=== PATIENT | female | born 1960 | race Caucasian/White ===

== ENCOUNTER 2016-10-21 09:49 | Emergency (ER) ==
[2016-10-21 10:01] VITALS: BP 126/90; TEMP 96.2; BMI 35.4
[2016-10-21] MEDS ORDERED: ATIVAN IVP STA (10:02)
[2016-10-21] MEDS ORDERED: SODIUM CHLORIDE 1,000 ML IV STA (10:05)
[2016-10-21 10:46] LABS: BASOPHILS % (AUTO) 0.6 % (0.0-3.0); EOSINOPHILS # (AUTO) 0.3 K/ul (0.0-0.7); EOSINOPHILS % (AUTO) 4.1 % (0.0-7.0); HEMATOCRIT 40.6 % (37.0-47.0); HEMOGLOBIN 13.4 g/dl (12.0-16.0); IMMATURE GRANULOCYTE % (AUTO) 0.3 % (0.0-5.0); LYMPHOCYTES # (AUTO) 1.4 K/uL (0.60-3.4); LYMPHOCYTES % (AUTO) 21.7 (10.0-50.0); MEAN CORPUSCULAR HEMOGLOBIN 27.9 pg (27.0-31.0); MEAN CORPUSCULAR VOLUME 84.4 fl (81.0-99.0); MONOCYTES # (AUTO) 0.7 K/uL (0.4-2.0); MONOCYTES % (AUTO) 9.8 (0-10); NEUTROPHILS # (AUTO) 4.2 K/ul (2.0-6.9); NEUTROPHILS % (AUTO) 63.5; PLATELET COUNT 264 10^3/uL (140-440); RED BLOOD COUNT 4.81 10^6/ul (4.20-5.40)
--- NOTE | 2016-10-21 10:54 | CT ---
Exam: CT scan of the brain without intravenous contrast administration. Reason for study: Trauma. Comparison: 11/12/2013. FINDINGS: No acute intracranial hemorrhage, mass effect, ventricular dilatation, or territorial infarction. T he quadrigeminal and ambient cisterns are patent. There is no extraaxial fluid collection. Soft ti ssue defect is seen in the left frontal calvarium with subcutaneous gas. The underlying calvarium a ppears intact. No displaced skull fracture. Impression: 1. No acute intracranial findings. 2. Soft tissue defect in the left frontal calvarium extending towards the vertex. Air in the subcu taneous soft tissues can be seen with recent trauma or surgical intervention but can also be seen wi th infection. Recommend further evaluation. Imaging interpretation faxed to [facility] at 1050 hours on the day of exam.
[2016-10-21 11:18] LABS: ACETAMINOPHEN < 3 ug/ml (10-30); ALANINE AMINOTRANSFERASE 22 U/L (12-78); ALBUMIN 3.5 g/dL (3.4-5.0); ALBUMIN/GLOBULIN RATIO 1.03; ALKALINE PHOSPHATASE 72 U/L (42-98); ANION GAP 12.2; ASPARTATE AMINO TRANSFERASE 20 U/L (15-37); BILIRUBIN,TOTAL 0.39 mg/dL (0.00-1.20); BLOOD UREA NITROGEN 16 mg/dL (7-18); BUN/CREATININE RATIO 16.84; CARBON DIOXIDE 22 mmol/L (21-32); CHLORIDE 106 mmol/L (98-107); CREATININE 0.95 mg/dL (0.60-1.30); GLUCOSE 99 mg/dL (70-110); POTASSIUM 3.2 mmol/L (3.5-5.10); SALICYLATE < 5.0 mg/dL (2.8-20.0); SODIUM 137 mmol/L (136-145); TOTAL PROTEIN 6.9 g/dL (6.4-8.2)
--- NOTE | 2016-10-21 12:20 | ED.PDOC ---
General ED Provider: Dr. DORA FAIR Chief Complaint: Laceration Stated Complaint: LACERATION SCALP Time Seen by Physician: 10:00 (FALL HEAD LACERATION) Mode of Arrival: Walk-In Information Source: Patient, Family Exam Limitations: No limitations Primary Care Provider: MARIYA DAWN Nursing and Triage Documentation Reviewed and Agree: Yes Trauma/Injury Complaint Exam - Head Injury Complaint/Exam Location of Pain: Reports: Scalp Mechanism of Injury: Reports: Trauma Onset/Duration: THIS MORNING Symptoms Are: Still present Initial Severity: Moderate Current Severity: Moderate Character: Reports: Dull Aggravating: Reports: None Alleviating: Reports: None (STATED SHE DID SOME METHAMPHETAMINE TODAY) Associated Signs and Symptoms: Denies: Confusion, Memory loss, Seizure, Epistaxis, Dental malocclusion, Neck pain, Nausea, Vomiting Loss of Consciousness: None SDH Risk Factors: Present: None Cervical Spine Injury Risk Factors: Present: None Related Surgical History: Reports: None Immobilization Removed Post Exam: No Glascow Coma Scale (see protocol): 15 Focal Weakness: Present: None Focal Sensory Loss: Present: None Gait: Normal Gag Reflex Present: Yes Finger to Nose: Normal Rhomberg Test Positive: No Babinski Sign: Negative Right, Negative Left Nexus Low Risk Criteria: No post-midline CS tender, No evidence of intoxicat., No Altered LOC, No focal neuro deficit, No distracting injuries Differential Diagnoses: Trauma, Other (SCALP LACERATION) Review of Systems - Review Of Systems Constitutional: Reports: No symptoms Eyes: Reports: No symptoms Ears, Nose, Mouth, Throat: Reports: No symptoms Respiratory: Reports: No symptoms Cardiac: Reports: No symptoms GI: Reports: No symptoms : Reports: No symptoms Musculoskeletal: Reports: No symptoms Skin: Reports: Other (LACERATION) Neurological: Reports: No symptoms Endocrine: Reports: No symptoms Hematologic/Lymphatic: Reports: No symptoms All Other Systems: Reviewed and Negative Past Medical History - Past Medical History Endocrine: Reports: Hypothyroid Cardiovascular: Reports: CAD, Hypertension Respiratory: Reports: None Hematological: Reports: Anemia Gastrointestinal: Reports: None Genitourinary: Reports: None Neuro/Psych: Reports: Depression Musculoskeletal: Reports: None Cancer: Reports: None Last Menstrual Period: na - Surgical History General Surgical History: Reports: Tubal ligation, CABG (x5), Other ( HEMORRHOID ) - Family History Family History: Reports: Unknown - Social History Smoking Status: Former smoker Hx Substance Use: Yes (injected meth this am) Alcohol Screening: None Physical Exam - Physical Exam Appearance: Well-appearing (A 20 CM LACERATION EXTENDING TO CALVARIUM ), No pain distress, Well-nourished Eyes: COLLEEN, EOMI, Conjunctiva clear ENT: Ears normal, Nose normal, Oropharynx normal Respiratory: Airway patent, Breath sounds clear, Breath sounds equal, Respirations nonlabored Cardiovascular: RRR, Pulses normal, No rub, No murmur GI/: Soft, Nontender, No masses, Bowel sounds normal, No Organomegaly Musculoskeletal: Normal strength, ROM intact, No edema, No calf tenderness Skin: Warm, Dry, Normal color Neurological: Sensation intact, Motor intact, Reflexes intact, Cranial nerves intact, Alert, Oriented Psychiatric: Affect appropriate, Mood appropriate Physician Notification - Case Discussed Physician Notified: ZHANG Time of Notification: 12:23 ( TRANSFER ) Critical Care Note - Critical Care Note Total Time (mins): 0 Course - Course Hematology/Chemistry: 10/21/16 10:08 10/21/16 10:35 Orders, Labs, Meds: Lab Review 10/21/16 10/21/16 10:08 10:35 WBC 6.60 RBC 4.81 Hgb 13.4 Hct 40.6 MCV 84.4 MCH 27.9 MCHC 33.0 RDW Coeff of Emy 13.1 Plt Count 264 Immature Gran % (Auto) 0.3 Neut % (Auto) 63.5 Lymph % (Auto) 21.7 [place] % (Auto) 9.8 Eos % (Auto) 4.1 Baso % (Auto) 0.6 Immature Gran # (Auto) 0.0 Neut # 4.2 Lymph # 1.4 [place] # 0.7 Eos # 0.3 Baso # 0.0 Sodium 137 Potassium 3.2 L Chloride 106 Carbon Dioxide 22 Anion Gap 12.2 BUN 16 Creatinine 0.95 Estimated GFR (MDRD) 62.00 BUN/Creatinine Ratio 16.84 Glucose 99 Calcium 9.0 Total Bilirubin 0.39 AST 20 ALT 22 Alkaline Phosphatase 72 Total Protein 6.9 Albumin 3.5 Globulin 3.4 Albumin/Globulin Ratio 1.03 Salicylate Level mg/dL < 5.0 Acetaminophen < 3 L Plasma/Serum Alcohol < 10.0 Orders Category Date Time Status EKG-(ED ONLY) Stat CARDIO 10/21/16 10:08 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[employer] COMM[employer]ICATIONS APPLIED ONCE EMERGENCY 10/21/16 10:08 Active ACETAMINOPHEN Stat LAB 10/21/16 10:35 Completed BLOOD ALCOHOL Stat LAB 10/21/16 10:35 Completed CBC W/ AUTO DIFF Stat LAB 10/21/16 10:08 Completed COMPREHENSIVE METABOLIC PANEL Stat LAB 10/21/16 10:35 Completed DRUG SCREEN, URINE, RAPID Stat LAB 10/21/16 10:08 Ordered SALICYLATE Stat LAB 10/21/16 10:35 Completed URINALYSIS C & S IF INDICATED Stat LAB 10/21/16 10:08 Uncollected Lorazepam Inj [Ativan] MEDS 10/21/16 10:02 Discontinued 1 mg IVP ONCE STA Sodium Chloride 0.9% [Sodium Chloride] 1,000 ml MEDS 10/21/16 10:05 Active IV 100 mls/hr CT HEAD W/O CONTRAST Stat RADS 10/21/16 10:03 Completed Medications Generic Name Dose Route Start Last Admin Trade Name Freq PRN Reason Stop Dose Admin Sodium Chloride 1,000 mls @ 100 mls/hr 10/21/16 10:05 10/21/16 10:10 Sodium Chloride IV 10/21/16 20:04 100 mls/hr .Q10H STA Administration Discontinued Medications Generic Name Dose Route Start Last Admin Trade Name Freq PRN Reason Stop Dose Admin Lorazepam 1 mg 10/21/16 10:02 10/21/16 10:10 Ativan IVP 10/21/16 10:03 1 mg ONCE STA Administration Vital Signs: Temp Pulse Resp BP Pulse Ox 10/21/16 09:51 96.2 F L 77 24 126/90 98 Departure - Departure Time of Disposition: 12:22 Disposition: TSF SHORT-TRM HOSP Discharge Problem: Laceration of skin of scalp Qualifiers: Encounter type: initial encounter Qualifier Code: (S01.01XA) Laceration without foreign body of scalp, initial encounter Instructions: Head Injury (ED) Condition: Good Pt referred to PMD for follow-up: Yes (VICENTE ANGEL DRUZE) Allergies/Adverse Reactions: Allergies adhesive Adverse Reaction (Verified 10/21/16 10:04) latex Adverse Reaction (Verified 10/21/16 10:04) Penicillins Adverse Reaction (Verified 10/21/16 10:04) Home Medications: Ambulatory Orders Cyanocobalamin/Folic Acid [Vitamin Q57-Fuwpt Acid Tablet] 500 mcg PO DAILY 04/05 Levothyroxine Sodium [Synthroid] 125 mcg PO DAILY 04/05/13 Metoprolol Tartrate [Lopressor] 25 mg PO BID 04/05/13 Amlodipine Besylate [Norvasc] 5 mg PO DAILY 11/12/13 Aspirin [Aspirin EC] 81 mg PO DAILYWM 10/17/14 Potassium Chloride [K-Tab ER] 10 meq PO BEDTIME 02/05/15
== END 2016-10-21 13:04 | disposition short-term general hospital (02) ==
LOC: ED 09:49
DX: S01.01XA Laceration without foreign body of scalp, initial encounter (principal); W19.XXXA Unspecified fall, initial encounter
CPT/HCPCS: 36415; 80053; 80307; 85025; 93005; 93010; 96361; 96374; 99285

== ENCOUNTER 2016-10-21 13:11 | Outpatient (CLI) ==
[2016-10-21 10:01] VITALS: BMI 35.4
== END 2016-10-21 13:12 ==
LOC: AMBL 13:11
PROVIDERS: ATTEND Internal Medicine
DX: S01.01XA Laceration without foreign body of scalp, initial encounter (principal); W19.XXXA Unspecified fall, initial encounter

== ENCOUNTER 2017-11-28 01:13 | Outpatient (CLI) ==
[2017-11-28 01:41] VITALS: BMI 34.0
== END 2017-11-28 01:18 | disposition short-term general hospital (02) ==
LOC: AMBL 01:13
PROVIDERS: ATTEND Emergency Medicine
DX: S81.812A Laceration without foreign body, left lower leg, initial encounter (principal); S89.92XA Unspecified injury of left lower leg, initial encounter; M25.562 Pain in left knee; W10.9XXA Fall (on) (from) unspecified stairs and steps, initial encounter

== ENCOUNTER 2017-11-28 01:23 | Emergency (ER) ==
[2017-11-28 01:41] VITALS: BP 122/83; TEMP 98; BMI 34.0
[2017-11-28] MEDS ORDERED: BOOSTRIX IM ONE (01:56)
[2017-11-28] MEDS ORDERED: LIDOCAINE 1%-EPI 1:100,000 20 ML MDV INJ STA (01:56)
--- NOTE | 2017-11-28 02:20 | ED.PDOC ---
General ED Provider: Dr. ISAIAS GIRARD Chief Complaint: Fall Stated Complaint: Fell at home injured left knee, has cut to left knee started bleeding, she called 911. patient admits doing Methamphetamine Time Seen by Physician: 02:17 Mode of Arrival: Ambulance Information Source: Patient Primary Care Provider: MARIYA DAWN Nursing and Triage Documentation Reviewed and Agree: Yes Reviewed sepsis parameters & appropriate labs ordered?: No System Inflammatory Response Syndrome: Not Applicable Sepsis Protocol: For patient's 13 years and over: Temp is 96.8 and below OR 101 and greater Pulse >90 BPM Resp >20/minute Acutely Altered Mental Status Are patient's symptoms suggestive of a new infection, such as: -Pneumonia -Skin, Soft Tissue -Endocarditis -UTI -Bone, Joint Infection -Implantable Device -Acute Abdominal Infection -Wound Infection -Meningitis -Blood Stream Catheter Infection -Unknown Skin Complaint Exam - Laceration/Lower Ext. Complaint/Exam Location of Injury: Left, Knee Mechanism of Injury: Laceration Symptoms Are: Still present Initial Severity: Moderate Current Severity: Moderate Aggravating: Movement Alleviating: None Associated Signs and Symptoms: Denies: Fever, Chills, Erythema, Numbness, Tingling Differential Diagnoses: Laceration Review of Systems - Review Of Systems Constitutional: Reports: No symptoms Eyes: Reports: No symptoms Ears, Nose, Mouth, Throat: Reports: No symptoms Respiratory: Reports: No symptoms Cardiac: Reports: No symptoms GI: Reports: No symptoms : Reports: No symptoms Musculoskeletal: Reports: No symptoms Skin: Reports: No symptoms Neurological: Reports: No symptoms Endocrine: Reports: No symptoms Hematologic/Lymphatic: Reports: No symptoms All Other Systems: Reviewed and Negative Past Medical History - Past Medical History Previously Healthy: Yes Endocrine: Reports: Hypothyroid Cardiovascular: Reports: CAD, Hypertension Respiratory: Reports: None Hematological: Reports: Anemia Gastrointestinal: Reports: None Genitourinary: Reports: None Neuro/Psych: Reports: Depression Musculoskeletal: Reports: None Cancer: Reports: None Last Menstrual Period: PT HAS HAD A HYSTERECTOMY - Surgical History General Surgical History: Reports: Tubal ligation, CABG (x5), Other ( HEMORRHOID ) - Family History Family History: Reports: Unknown - Social History Smoking Status: Former smoker Hx Substance Use: Yes (injected meth) Alcohol Screening: None - Immunizations Tetanus Shot up to Date: (UNKNOWN) Physical Exam - Physical Exam Appearance: Well-appearing, No pain distress, Well-nourished Eyes: COLLEEN, EOMI, Conjunctiva clear ENT: Ears normal, Nose normal, Oropharynx normal Respiratory: Airway patent, Breath sounds clear, Breath sounds equal, Respirations nonlabored Cardiovascular: RRR, Pulses normal, No rub, No murmur GI/: Soft, Nontender, No masses, Bowel sounds normal, No Organomegaly Musculoskeletal: Normal strength, ROM intact, No edema, No calf tenderness Skin: Warm, Dry, Normal color Neurological: Sensation intact, Motor intact, Reflexes intact, Cranial nerves intact, Alert, Oriented Psychiatric: Affect appropriate, Mood appropriate Procedures - Laceration/Wound Repair No standard instances Wound Description: Linear Wound Length (cm): 5 cm Wound Width: 0.5 cm Wound Explored: Clean Wound Irrigated: Yes Wound Prep: Saline, Hibiclens Anesthesia: Lidocaine Wound Repaired With: Sutures Suture Size and Type: 4-0 FS2 Number of Sutures: 7 Layer Closure?: No Sterile Dressing Applied?: Yes Splint Applied?: No Critical Care Note - Critical Care Note Total Time (mins): 30 Course - Course Orders, Labs, Meds: Orders Category Date Time Status Diphth,Pertuss(Acell),Tet Vac [Boostrix] MEDS 11/28/17 01:56 Once 0.5 ml IM .ONCE ONE Lidocaine 1%/Epinephrine [Lidocaine 1%-Epi 1:100,000 20 MEDS 11/28/17 01:56 Stat ml Mdv] 1 ml INJ ONCE STA Medications Discontinued Medications Generic Name Dose Route Start Last Admin Trade Name Freq PRN Reason Stop Dose Admin Diphtheria/Pertussis/Tetanus Vacc 0.5 ml 11/28/17 01:56 11/28/17 02:04 Boostrix IM 11/28/17 01:57 0.5 ml .ONCE ONE Administration Lidocaine/Epinephrine 1 ml 11/28/17 01:56 11/28/17 02:06 Lidocaine 1%-Epi 1:100,000 20 Ml Mdv INJ 11/28/17 01:57 Not Given ONCE STA Vital Signs: Temp Pulse Resp BP Pulse Ox 11/28/17 01:29 98 F 69 24 122/83 100 Departure - Departure Time of Disposition: 02:23 Disposition: HOME SELF-CARE Discharge Problem: Laceration of knee, left Qualifiers: Encounter type: initial encounter Qualified Code(s): S81.012A - Laceration without foreign body, left knee, initial encounter Instructions: Diphtheria/Acellular Pertussis/Tetanus Vaccine (By injection), Laceration (DC) Condition: Stable Pt referred to PMD for follow-up: Yes IPMP verified?: No Additional Instructions: needs f/u with PMD after 7 days for suture removal. rest tylenol prn Allergies/Adverse Reactions: Allergies adhesive Adverse Reaction (Verified 11/28/17 01:41) latex Adverse Reaction (Verified 11/28/17 01:41) Penicillins Adverse Reaction (Verified 11/28/17 01:41) Home Medications: Ambulatory Orders Cyanocobalamin/Folic Acid [Vitamin O47-Xrbvi Acid Tablet] 500 mcg PO DAILY 04/05 Levothyroxine Sodium [Synthroid] 125 mcg PO DAILY 04/05/13 Metoprolol Tartrate [Lopressor] 25 mg PO BID 04/05/13 Amlodipine Besylate [Norvasc] 5 mg PO DAILY 11/12/13 Aspirin [Aspirin EC] 81 mg PO DAILYWM 10/17/14 Potassium Chloride [K-Tab ER] 10 meq PO DAILY 02/05/15 Pravastatin Sodium 10 mg PO DAILY 11/28/17 Disposition Discussed With: Patient, Family
[2017-11-28] MEDS ORDERED: LIDOCAINE HCL 1% SDV ONE (03:22)
== END 2017-11-28 02:41 | disposition home or self-care (01) ==
LOC: ED 01:23
DX: S81.012A Laceration without foreign body, left knee, initial encounter (principal); W19.XXXA Unspecified fall, initial encounter
CPT/HCPCS: 90471; 90715; 96372; 99283

== ENCOUNTER 2017-12-05 16:50 | Emergency (ER) ==
[2017-12-05 16:54] VITALS: BP 141/86; TEMP 97.6; BMI 34.2
--- NOTE | 2017-12-05 17:07 | ED.PDOC ---
General ED Provider: Dr. ZANDRA HENNING Chief Complaint: Wound Check Stated Complaint: Painful wound Lt Knee. Sustained laceration to infrapatellar region of her Lt knee last week which was sutured in the ER on the . Recommended following up here today for suture removal. Complains of pain, reddness and drainage at healing laceration site of Lt Knee. Time Seen by Physician: 16:50 Mode of Arrival: Walk-In Information Source: Patient Exam Limitations: No limitations Primary Care Provider: MARIYA AMYS Nursing and Triage Documentation Reviewed and Agree: Yes Reviewed sepsis parameters & appropriate labs ordered?: Yes System Inflammatory Response Syndrome: Not Applicable Sepsis Protocol: For patient's 13 years and over: Temp is 96.8 and below OR 101 and greater Pulse >90 BPM Resp >20/minute Acutely Altered Mental Status Are patient's symptoms suggestive of a new infection, such as: -Pneumonia -Skin, Soft Tissue -Endocarditis -UTI -Bone, Joint Infection -Implantable Device -Acute Abdominal Infection -Wound Infection -Meningitis -Blood Stream Catheter Infection -Unknown System Inflammatory Response Syndrome: Not Applicable Skin Complaint Exam - Laceration/Lower Ext. Complaint/Exam Location of Injury: Left, Knee Mechanism of Injury: Blunt trauma Onset/Duration: since the Symptoms Are: Still present Initial Severity: Moderate Current Severity: Moderate Aggravating: Movement Alleviating: None Associated Signs and Symptoms: Reports: Erythema. Denies: Fever, Chills Related History: Denies: Anticoagulant use, Occupational injury Differential Diagnoses: Laceration (healing with wound cellulitis) Review of Systems - Review Of Systems Constitutional: Reports: No symptoms Eyes: Reports: No symptoms Ears, Nose, Mouth, Throat: Reports: No symptoms Respiratory: Reports: No symptoms Cardiac: Reports: No symptoms GI: Reports: No symptoms : Reports: No symptoms Musculoskeletal: Reports: No symptoms Skin: Reports: No symptoms, Other (wound cellulitis lt knee laceration site) Neurological: Reports: No symptoms Endocrine: Reports: No symptoms Hematologic/Lymphatic: Reports: No symptoms All Other Systems: Reviewed and Negative Past Medical History - Past Medical History Previously Healthy: Yes Endocrine: Reports: Hypothyroid Cardiovascular: Reports: CAD, Hypertension Respiratory: Reports: None Hematological: Reports: Anemia Gastrointestinal: Reports: None Genitourinary: Reports: None Neuro/Psych: Reports: Depression Musculoskeletal: Reports: None Cancer: Reports: None Last Menstrual Period: NONE - Surgical History General Surgical History: Reports: Tubal ligation, CABG (x5), Other ( HEMORRHOID ) - Family History Family History: Reports: Unknown - Social History Smoking Status: Former smoker Hx Substance Use: Yes (injected meth) Alcohol Screening: None Physical Exam - Physical Exam Appearance: Well-appearing Ill-appearing: None Pain Distress: Mild Eyes: COLLEEN, EOMI, Conjunctiva clear ENT: Ears normal, Nose normal, Oropharynx normal Respiratory: Airway patent Cardiovascular: RRR, Pulses normal, No rub, No murmur GI/: Soft, Nontender, No masses, Bowel sounds normal, No Organomegaly Musculoskeletal: Normal strength, ROM intact, No edema, No calf tenderness Skin: Warm, Dry (Lt Knee-3.5 cm laceration -healing with sutures in place/ reddness and edematous/tender to touch/no drainage noted to inspection of the wound) Neurological: Sensation intact, Motor intact, Reflexes intact, Cranial nerves intact, Alert, Oriented Psychiatric: Affect appropriate, Mood appropriate, Anxious Critical Care Note - Critical Care Note Total Time (mins): 0 Course - Course Vital Signs: Temp Pulse Resp BP Pulse Ox 12/05/17 16:50 97.6 F 63 18 141/86 H 97 Departure - Departure Time of Disposition: 17:15 Disposition: HOME SELF-CARE Discharge Problem: Wound infection, posttraumatic Instructions: Laceration (ED), Wound Infection (ED) Condition: Good Pt referred to PMD for follow-up: Yes (See Dr Mays in 2-3 days) IPMP verified?: No Allergies/Adverse Reactions: Allergies adhesive Adverse Reaction (Verified 12/05/17 16:54) latex Adverse Reaction (Verified 12/05/17 16:54) Penicillins Adverse Reaction (Verified 12/05/17 16:54) Home Medications: Ambulatory Orders Cyanocobalamin/Folic Acid [Vitamin C86-Aoksh Acid Tablet] 500 mcg PO DAILY 04/05 Levothyroxine Sodium [Synthroid] 125 mcg PO DAILY 04/05/13 Metoprolol Tartrate [Lopressor] 25 mg PO BID 04/05/13 Amlodipine Besylate [Norvasc] 5 mg PO DAILY 11/12/13 Aspirin [Aspirin EC] 81 mg PO DAILYWM 10/17/14 Potassium Chloride [K-Tab ER] 10 meq PO DAILY 02/05/15 Pravastatin Sodium 10 mg PO DAILY 11/28/17 Clindamycin HCl 300 mg PO Q6HR #28 capsule 12/05/17 Disposition Discussed With: Patient
== END 2017-12-05 17:33 | disposition home or self-care (01) ==
LOC: ED 16:50
DX: T81.4XXA Infection following a procedure, initial encounter (principal); L08.9 Local infection of the skin and subcutaneous tissue, unspecified
CPT/HCPCS: 99282

== ENCOUNTER 2018-04-23 13:17 | Outpatient (CLI) | END 2018-04-23 13:18 | disposition home or self-care (01) | LOC: RAD 13:17 | PROVIDERS: ATTEND Nurse Practitioner Family | DX: Z12.31 Encounter for screening mammogram for malignant neoplasm of breast (principal) | CPT/HCPCS: 77067 ==

== ENCOUNTER 2018-04-26 10:13 | Outpatient (CLI) | END 2018-04-26 10:14 | disposition home or self-care (01) | LOC: RHC-LAB 10:13 | PROVIDERS: ATTEND Nurse Practitioner Family | DX: E78.5 Hyperlipidemia, unspecified (principal); I10 Essential (primary) hypertension; E03.9 Hypothyroidism, unspecified | CPT/HCPCS: 36415; 80053; 80061; 84443; 85025 ==

== ENCOUNTER 2018-05-30 11:46 | Outpatient (CLI) | END 2018-05-30 11:47 | disposition home or self-care (01) | LOC: RHC-LAB 11:46 | PROVIDERS: ATTEND Nurse Practitioner Family | DX: E78.5 Hyperlipidemia, unspecified (principal); E78.1 Pure hyperglyceridemia; I10 Essential (primary) hypertension; E03.9 Hypothyroidism, unspecified | CPT/HCPCS: 36415; 80053; 80061; 84443 ==

== ENCOUNTER 2018-11-26 09:29 | Outpatient (CLI) | END 2018-11-26 09:30 | disposition home or self-care (01) | LOC: RHC-LAB 09:29 | PROVIDERS: ATTEND General Practice | DX: E78.5 Hyperlipidemia, unspecified (principal); I10 Essential (primary) hypertension; E03.9 Hypothyroidism, unspecified | CPT/HCPCS: 36415; 80053; 80061; 84443; 85025 ==

== ENCOUNTER 2018-11-30 10:48 | Outpatient (CLI) | END 2018-11-30 10:49 | disposition home or self-care (01) | LOC: CAR 10:48 | PROVIDERS: ATTEND Nurse Practitioner Family | DX: R07.89 Other chest pain (principal); Z95.1 Presence of aortocoronary bypass graft | CPT/HCPCS: 93005; 93010 ==

== ENCOUNTER 2018-12-28 10:53 | Outpatient (CLI) | END 2018-12-28 10:54 | disposition home or self-care (01) | LOC: LAB 10:53 | PROVIDERS: ATTEND Nurse Practitioner Family | DX: E03.9 Hypothyroidism, unspecified (principal) | CPT/HCPCS: 36415; 84443 ==

== ENCOUNTER 2019-11-05 08:17 | Observation (INO) ==
[2019-11-05 08:28] VITALS: BMI 35.4
--- NOTE | 2019-11-05 09:00 | ED.PDOC ---
General ED Provider: Dr. ZANDRA HENNING Chief Complaint: Chest Pain Stated Complaint: States she's experienced Chest discomfort "tightness in Lt Chest" occurring with exertion and stress that is referred to Lt shoulder and Lt arm intermittently for past 2 weeks primarily when exertional and with stress. Has associated dyspnea. Has been anxious over current social and health problems that are occurring. States provides care to her 5 grandchildren daily which is stressful. All symptoms resolve with rest. Denies hx COPD +hx pm wheezing Time Seen by Physician: 09:00 Mode of Arrival: Walk-In Information Source: Patient Exam Limitations: No limitations Primary Care Provider: JACQUELINE CAM APRN, NANCY Nursing and Triage Documentation Reviewed and Agree: Yes Does patient meet sepsis criteria?: No System Inflammatory Response Syndrome: Not Applicable Sepsis Protocol: For patient's 13 years and over: Temp is 96.8 and below OR 101 and greater Pulse >90 BPM Resp >20/minute Acutely Altered Mental Status Are patient's symptoms suggestive of a new infection, such as: -Pneumonia -Skin, Soft Tissue -Endocarditis -UTI -Bone, Joint Infection -Implantable Device -Acute Abdominal Infection -Wound Infection -Meningitis -Blood Stream Catheter Infection -Unknown Cardiovascular Complaint Exam Chest Pain Complaint/Exam Onset: Gradual Duration: 6 weeks Symptoms Are: Still present Timing: Intermittent Initial Severity: Moderate Current Severity: Moderate Location: Reports Left anterior Pain Radiates: Reports Left shoulder and Left arm Character: Reports Tightness Aggravating: Reports Exertion Alleviating: Reports Rest Associated Signs and Symptoms: Reports Diaphoresis and Short of air Related History: Reports Similar episode Related Surgical History: Reports Cardiac Cath and CABG (6 vessels) History of Healthcare-Acquired Pneumonia: Reports No AMI/ACS Risk Factors: Reports Hypertension (Hyperlipidemia, hx substance abuse(Meth)) and Dyslipidemia TAD Risk Factors: Reports Hypertension, Smoking and Family history Pulmonary Embolism Risk Factors: Reports Smoking (Previous hx) Prior Care for this Complaint: Yes Recent Stress Test: Yes (Caring for 5 children daily) Recent Echo/LV Function: No JVD Present: No Subcutaneous Emphysema Present: No Diminshed Breath Sounds: No Reproducible Chest Wall Pain: No Bilateral Pulses Present: Yes Unequal Pulses Noted: No If Risk Factors for AMI/ACS Consider: EKG and Cardiac Enzymes Documents Reviewed: EMS records, Labs, Imaging and EKG Differential Diagnoses: Unstable Angina and Chest Wall Pain Quality Indicators For Acute OK or Cardiac Chest Pain: EKG in 10min. Review of Systems Review Of Systems Constitutional: Reports No symptoms Eyes: Reports No symptoms Ears, Nose, Mouth, Throat: Reports No symptoms Respiratory: Reports Wheezing Cardiac: Reports Chest pain GI: Reports No symptoms : Reports No symptoms Musculoskeletal: Reports No symptoms Skin: Reports No symptoms Neurological: Reports No symptoms Endocrine: Reports No symptoms Hematologic/Lymphatic: Reports No symptoms All Other Systems: Reviewed and Negative [facility] Medical History Anxiety Chest pain Drug abuse Head injury Hypertension Family History FATHER Diabetes Cardiac disease Hypertension Mother Diabetes Hypertension Social History Smoking and tobacco status: Former smoker Second hand smoke exposure: Yes Alcohol intake: never Substance use type: former substance user Counseling given: Yes (Currently seeing Mental health) Counseling provided: support program Laura/pentecostal: none Special laura needs: No Agree to transfusion: Yes Adopted: No Caregiver/support person: No Foster care: No Household members: family Housing: house Number of children: 3 Highest education level completed: high school graduate Financial difficulty paying for basics: not applicable service: No detention: No Current occupational status: unemployed Current occupational exposures/hazards: No Pets and animals: No Leisure activites: art History of recent travel: No Sexually active: No Do you think of yourself as: straight/heterosexual Current gender identity: female Seatbelt use: always Drives intoxicated or rides with intoxicated local driver: No Water heater temperature set < 120 degrees: Yes Working smoke detector in home: Yes Fire extinguisher in home: Yes Carbon monoxide detector in home: Yes Firearms in home: No Female Reproductive History Menstrual Hx Hysterectomy: Yes Hx Tubal Ligation: Yes Physical Exam Physical Exam Appearance: Reports Well-appearing, No pain distress and Obese Ill-appearing: None Pain Distress: Mild Eyes: Reports COLLEEN, EOMI and Conjunctiva clear ENT: Reports Ears normal and Nose normal Neck: Supple Respiratory: Reports Airway patent, Breath sounds clear and Breath sounds equal Cardiovascular: Reports RRR, Pulses normal and No murmur (Grade II ÁNGEL) GI/: Reports Soft, Nontender, No masses, Bowel sounds normal and No Organomegaly Musculoskeletal: Reports Normal strength and ROM intact Skin: Reports Warm, Dry and Normal color Neurological: Reports Sensation intact, Motor intact, Reflexes intact, Cranial nerves intact, Alert and Oriented Psychiatric: Reports Affect appropriate and Anxious Interpretation Radiology Interpretation Exam Interpreted: CXR (No acute changes) It Business Analyst Time of It Business Analyst Interpretation: 08:37 Rate: Kishan Rhythm: Sinus Ectopy: None EKG Interpretation Time of EKG #1: 08:47 Rate: Kishan Rhythm: Sinus Ectopy: None [place]: Left ST Segment: Other (non specific) Interpretation: Sinus Bradycardia; Non Specific T Wave Abnormality Re-Evaluation Re-Evaluation Time of Re-Evaluation: 10:30 Status: Improved Vital Signs Stable: Yes Pain Level: 0/10 Appearance: NAD Lungs: Clear Skin: Warm and Dry Neuro: Alert and Oriented X3 CV: RRR Physician Notification Case Discussed Physician Notified: Dr Reynaga-Discussed case-agreed to consult for anticipate Stress Echo Time of Notification: 10:40 Physician Notified: Sg Echeverria-agrees to admit Time of Notification: 10:45 Critical Care Note Critical Care Note Total Time (mins): 60 Comments: I have personally provided 60 minutes of critical care time exclusive of time spent on separately billable procedures. Time includes review of laboratory data, radiology results, discussion with consultants, and monitoring for potential decompensation. Upon my evaluation, and becoming aware of the patients PMH/PSH and her current symptoms of exertional Chest Pain, I was concerned that this patient had a high probability of imminent or life-threatening deterioration due to worsening angina and progression to possible STEMI. I monitored the patient frequently, obtained previous records of cardiac evaluation including Stress echo and her presence required my direct attention, intervention, and personal management. I have discussed the case with the computer systems consultant and mid level provider. . Course Course Orders, Labs, Meds: Orders Category Date Time Status EKG-(ED ONLY) Stat CARDIO 11/05/19 09:00 Ordered IV [ED IV/MEDIPORT/POWERPORT] .ONCE EMERGENCY 11/05/19 09:00 Ordered CBC W/ AUTO DIFF Stat LAB 11/05/19 09:00 Ordered CMP [COMPREHENSIVE METABOLIC PANEL] Stat LAB 11/05/19 09:00 Ordered TROPONIN I Stat LAB 11/05/19 09:00 Ordered 0.9 % Sodium Chloride [Saline Flush] MEDS 11/05/19 09:00 Ordered 1 syr IVF PRN PRN CHEST, 1V AP ONLY Stat RADS 11/05/19 09:00 Ordered Medications Generic Name Dose Route Start Last Admin Trade Name Freq PRN Reason Stop Dose Admin Sodium Chloride 1 syr 11/05/19 09:00 Saline Flush IVF PRN PRN To flush IV Vital Signs: Temp Pulse Resp BP Pulse Ox 11/05/19 08:21 97.5 F L 81 18 132/63 95 BUTCH Risk Score BUTCH Risk Score: Risk Score Odds of by 30D 0 0.1 (0.1-0.2) 1 0.3 (0.2-0.3) 2 0.4 (0.3-0.5) 3 0.7 (0.6-0.9) 4 1.2 (1.0-1.5) 5 2.2 (1.9-2.6) 6 3.0 (2.5-3.6) 7 4.8 (3.8-6.1) Discharge Plan Discharge Patient Disposition: PLACED OBSERVATION Discharge Problem: Chest pain, Hyperlipidemia, Hx of coronary artery bypass graft, Bradycardia, Anxiety ED Provider: ZANDRA HENNING Condition: Stable Additional Comments Additional Comments: Discussed findings with patient and recommended admit for additional Cardiac evaluation Agreed to plan.
[2019-11-05 09:18] LABS: HEMATOCRIT 42.3 % (37.0-47.0)
--- NOTE | 2019-11-05 09:33 | DI ---
EXAM: Chest one view, frontal view only. HISTORY: Chest pain. COMPARISON: 12/10/2014. FINDINGS: Post CABG changes noted. Heart is at the upper limits of normal size. There is no overt vascular congestion. Thin linear opacities seen in the left base which are stable and consistent wit h scarring. Right lung is clear. No pleural effusion or pneumothorax identified. No acute osseous abnormality detected. IMPRESSION: No acute process. Stable left basilar scarring.
--- NOTE | 2019-11-05 12:07 | PCM ---
Chief Complaint Chief Complaint: Chest Pain History of Present Illness History of Present Illness: Pt states that for the past 2-3 weeks she has been having off and on CP. Pain is a pressure about the left upper chest and at times it encompasses the entire chest with a pressure sensation. Once in a while she will have left shoulder pain and less frequently this will be a burning sensation down to her finger tips. Also, rarely she will become dizzy, blurred vision, diplopia with the chest pain which she says is now about a 2-3/10 but can get as high as a 8-9/10. She also becomes SOB and has increased WOB with walking to the mail box. During the last 2-3 weeks Pt admits to having sweats at night about her neck. Pt denies N/V. Review of Systems Constitutional: Reports sweats; Denies fever and chills Eyes: Reports blurred vision and double-vision Nose: Denies discharge Throat: Denies pain and voice change Respiratory: Reports shortness of air; Denies cough and pain with breathing Cardiovascular: Reports chest pain (see HPI. ) Gastrointestinal: Denies abdominal pain, nausea and vomiting Neurological: Reports dizziness Musculoskeletal: Denies pain and swelling in joints Hematology: Denies easy bruising and easy bleeding Endocrine: Denies weight changes Psychiatric: Reports anxiety Habits: Denies tobacco use Allergies Allergies Allergy/AdvReac Type Severity Reaction Status Date / Time adhesive AdvReac Verified 11/05/19 08:35 latex AdvReac Verified 11/05/19 08:35 Penicillins AdvReac Verified 11/05/19 08:35 PFSH Medical History Anxiety Chest pain Drug abuse Head injury Hypercholesteremia Hypertension Surgical History History of surgery History of tubal ligation Status post coronary artery bypass graft (01/27/12) Status post hysterectomy Family History (Updated 11/05/19 @ 12:14 by CLAUDIA CHAN RN) FATHER Diabetes Cardiac disease Hypertension Mother Diabetes Hypertension Cancer Social History Smoking and tobacco status: Former smoker Second hand smoke exposure: Yes Alcohol intake: never Substance use type: former substance user Counseling given: Yes (Currently seeing Mental health) Counseling provided: support program Laura/moravian: none Special laura needs: No Agree to transfusion: Yes Adopted: No Caregiver/support person: No Foster care: No Household members: family Housing: house Number of children: 3 Highest education level completed: high school graduate Financial difficulty paying for basics: not applicable service: No residential: No Current occupational status: unemployed Current occupational exposures/hazards: No Pets and animals: No Leisure activites: art History of recent travel: No Sexually active: No Do you think of yourself as: straight/heterosexual Current gender identity: female Seatbelt use: always Drives intoxicated or rides with intoxicated warehouse driver: No Water heater temperature set < 120 degrees: Yes Working smoke detector in home: Yes Fire extinguisher in home: Yes Carbon monoxide detector in home: Yes Firearms in home: No Medications Medications: Medications Generic Name Dose Route Start Last Admin Trade Name Freq PRN Reason Stop Dose Admin Sodium Chloride 1 syr 11/05/19 09:00 11/05/19 09:31 Saline Flush IVF 1 syr PRN PRN Administration To flush IV Body Composition Height: 5 ft 3 in Weight: 200 lb 3.2 oz Body Mass Index (BMI): 35.4 Vital Signs Temperature: 97.5 F Pulse Rate: 81 Respiratory Rate: 18 Blood Pressure: 132/63 O2 Sat by Pulse Oximetry: 95 Physical Examination Appearance: Reports Well-appearing, No pain distress and Obese Eyes: Reports COLLEEN ENT: Reports Oropharynx normal; Denies Rhinorrhea Neck: Supple Respiratory: Reports Airway patent, Breath sounds clear and Breath sounds equal Cardiovascular: Reports RRR, No rub and No murmur GI/: Reports Soft, Nontender and Bowel sounds normal Musculoskeletal: Reports No edema and No calf tenderness Skin: Reports Warm and Dry Neurological: Reports Sensation intact, Alert and Oriented Psychiatric: Reports Affect appropriate and Mood appropriate Lab/Tests/Diagnostic Imaging Lab/Tests/Diagnostic Imaging: Lab Review 11/05/19 11/05/19 11/05/19 09:16 09:16 09:20 WBC 5.21 RBC 4.88 Hgb 13.3 Hct 42.3 MCV 86.7 MCH 27.3 MCHC 31.4 L RDW Coeff of Emy 13.7 Plt Count 337 Immature Gran % (Auto) 0.4 Neut % (Auto) 55.4 Lymph % (Auto) 28.0 [place] % (Auto) 10.0 Eos % (Auto) 5.2 Baso % (Auto) 1.0 Immature Gran # (Auto) 0.0 Neut # (Auto) 2.9 Lymph # (Auto) 1.5 [place] # (Auto) 0.5 Eos # (Auto) 0.3 Baso # (Auto) 0.1 Sodium 141.7 Potassium 4.14 Chloride 106.2 Carbon Dioxide 29.5 Anion Gap 10.14 BUN 18.6 H Creatinine 1.11 Estimated GFR (MDRD) 51.00 BUN/Creatinine Ratio 16.75 Glucose 100.1 Calcium 9.16 Total Bilirubin 0.38 AST 24.2 ALT 16.4 Alkaline Phosphatase 34.5 L Troponin I < 0.012 Total Protein 7.16 Albumin 3.98 Globulin 3.18 Albumin/Globulin Ratio 1.25 Urine Color Yellow Urine Clarity Clear Urine pH 6.0 Ur Specific [place] >=1.030 Urine Protein Negative Urine Glucose (UA) Negative Urine Ketones Negative Urine Blood Negative Urine Nitrite Negative Urine Bilirubin Negative Urine Urobilinogen 0.2 Ur Leukocyte Esterase 1+ H Urine Microscopic WBC 5-10 Ur Squamous Epith Cells Not present Urine Mucus 1+ Orders Category Date Time Status ADMIT OBSERVATION [PLACE PATIENT OBSERVATION] .TO ADMISSION 11/05/19 11:06 Active MEDSURG (MONITORED BED) EKG-(ED ONLY) Stat CARDIO 11/05/19 09:00 Completed TELEMETRY MONITORING TELE CARE 11/05/19 11:09 Active IV [ED IV/MEDIPORT/POWERPORT] .ONCE EMERGENCY 11/05/19 09:00 Active CBC W/ AUTO DIFF Stat LAB 11/05/19 09:16 Completed CMP [COMPREHENSIVE METABOLIC PANEL] Stat LAB 11/05/19 09:16 Completed TROPONIN I Stat LAB 11/05/19 09:16 Completed URINALYSIS C & S IF INDICATED Stat LAB 11/05/19 09:20 Completed URINE CULTURE Stat LAB 11/05/19 09:20 Received 0.9 % Sodium Chloride [Saline Flush] MEDS 11/05/19 09:00 Active 1 syr IVF PRN PRN CHEST, 1V AP ONLY Stat RADS 11/05/19 09:00 Completed Medications Generic Name Dose Route Start Last Admin Trade Name Freq PRN Reason Stop Dose Admin Sodium Chloride 1 syr 11/05/19 09:00 11/05/19 09:31 Saline Flush IVF 1 syr PRN PRN Administration To flush IV Assessment (1) Chest pain: Status: Acute Code(s): R07.9 - Chest pain, unspecified SNOMED Code(s): 32898116 Qualifiers: Chest pain type: unspecified Qualified Code(s): R07.9 - Chest pain, unspecified Plan Plan: 1) Chest Pain: Cardiac Monitoring, VS Q6H, Supplemental O2 for SpO2 >93%, Serial Troponin, Cardiology Consultation, Stress Echo, Cardiac Diet, EKG in AM, 24 hour observation at this time. DVT/GI Prophylaxis: Pt is Ambulatory and Protonix. Code Status: Full Code WITHOUT Intubation but CPAP and BiPAP are OK.
[2019-11-05] MEDS ORDERED: PROZAC PO SCH ×2 (13:00→21:00)
[2019-11-05] MEDS ORDERED: FENOFIBRATE NANOCRYSTALLIZED 145 MG PO SCH ×2 (13:00→21:00)
[2019-11-05] MEDS: PROTONIX PO SCH (13:21)
[2019-11-05] MEDS: LOPRESSOR PO SCH (20:22)
[2019-11-05] MEDS ORDERED: LIPITOR PO SCH (21:00)
[2019-11-05] MEDS ORDERED: LEVOTHYROXINE 150 MCG PO SCH (21:00)
[2019-11-05] MEDS ORDERED: SYNTHROID PO SCH (21:00)
[2019-11-05] MEDS ORDERED: ASPIRIN EC PO SCH (21:00)
[2019-11-05] MEDS ORDERED: NORVASC PO SCH (21:00)
[2019-11-05] MEDS ORDERED: MICRO-K CAP PO SCH (21:00)
[2019-11-05] MEDS ORDERED: TRIGLIDE PO SCH (21:00)
[2019-11-06 04:54] LABS: HEMATOCRIT 42.3 % (37.0-47.0)
[2019-11-06] MEDS: PROTONIX PO SCH (06:24)
[2019-11-06] MEDS ORDERED: ASPIRIN EC PO SCH (08:00)
[2019-11-06] MEDS ORDERED: ATROPINE SULFATE PFS IVP PRN (08:22)
[2019-11-06] MEDS ORDERED: DOBUTAMINE 500 MG-D5W 250 ML 500 MG/250 ML BAG IV SCH (08:30)
[2019-11-06] MEDS: LOPRESSOR PO SCH (08:54)
[2019-11-06] MEDS ORDERED: NORVASC PO SCH (09:00)
[2019-11-06] MEDS ORDERED: MICRO-K CAP PO SCH (09:00)
[2019-11-06] MEDS ORDERED: LEVOTHYROXINE 150 MCG PO SCH (09:00)
[2019-11-06] MEDS ORDERED: MONOKET PO ONE (10:00)
[2019-11-06 10:17] VITALS: BP 129/78; TEMP 98.3
--- NOTE | 2019-11-06 11:23 | ECHO2D ---
Date of Exam: 11/06/19 Ordering Physician: BEN ASHLEY-HOSPITALIST/CRUMBLE Room #: 116 Reason for Echo: CHEST PAIN, SOB, HTN, CABG 2011 M-Mode Normal Adult Results LV Dimensions Normal Adult Results AoV Opening excursions >1.6 >1.6 LVEDD-base- 3.5-5.8 3.9 Ao root dimensions 2.0-3.7 3.1 LVESD-base- 3.1-4.6 L. Atrium dimensions 1.9-3.8 4.5 Post. Wall thickness 0.8-1.1 1.4 IV septum (thickness) 0.7-1.2 1.3 Post. Wall excursion 0.72-1.3 NORMAL Septal motion NORMAL Systolic motion R. Ventricular cavity 1.5-2.0 NORMAL LVEF 60% 69% Paradoxical septal wall motion NORMAL 2-D : 2-D M Mode Echocardiogram was performed using apical four chamber and left parasternal long and short axis views. Mitral, tricuspid and aortic valves appear to be normal. Contractility of the left ventricle seems to be normal, so is the cavity size. ENLARGED LEFT ATRIAL CAVITY SIZE. Aortic root appears to be normal. There is no pericardial effusion. There is no thrombus noted in the left ventricle or left atrial cavity. No mitral valve prolapse noted. M-MODE: MV: NORMAL AV: NORMAL TV: NORMAL PV: CHAMBER SIZE: ENLARGED LEFT ATRIAL CAVITY WALL MOTION: NORMAL PERICARDIUM: NORMAL INTERPRETATION: 1. MILD TO MODERATE LEFT VENTRICULAR HYPERTROPHY 2. ENLARGED LEFT ATRIAL CAVITY SIZE 3. NORMAL LEFT VENTRICULAR CONTRACTILITY 4. NORMAL VALVES MTDD
--- NOTE | 2019-11-06 11:26 | ECHOSTRESS ---
Date of Exam: 11/06/19 Ordering Physician: HOSPITALIST--BEN ASHLEY/TUTU Reason for Echo: CHEST PAIN, SOB, HTN, CABG 2011 M-Mode Normal Adult Results LV Dimensions Normal Adult Results AoV Opening excursions >1.6 LVEDD-base- 3.5-5.8 Ao root dimensions 2.0-3.7 LVESD-base- 3.1-4.6 L. Atrium dimensions 1.9-3.8 Post. Wall thickness 0.8-1.1 IV septum (thickness) 0.7-1.2 Post. Wall excursion 0.72-1.3 Septal motion Systolic motion R. Ventricular cavity 1.5-2.0 LVEF 60% Paradoxical septal wall motion 2-D: NORMAL LEFT VENTRICULAR CONTRACTILITY--RESTING AND WITH DOBUTAMINE INFUSION M-MODE: MV: AV: TV: PV: CHAMBER SIZE: WALL MOTION: NORMAL LEFT VENTRICULAR CONTRACTILITY--RESTING AND WITH DOBUTAMINE INFUSION PERICARDIUM: INTERPRETATION: 1. NORMAL LEFT VENTRICULAR CONTRACTILITY--RESTING AND WITH DOBUTAMINE INFUSION MTDD
--- NOTE | 2019-11-06 11:27 | PCM.DC ---
Final Diagnosis: Chest Pain (1) Chest pain: Status: Acute Code(s): R07.9 - Chest pain, unspecified SNOMED Code(s): 84330026 Qualifiers: Chest pain type: unspecified Qualified Code(s): R07.9 - Chest pain, unspecified Reason for Hospitalization: Monitor Cardiac markers, Stress test with Consulting Dr. Reynaga Log [place]. Prognosis at Discharge: [place] is good. Condition at Discharge: Pt is stable HEENT: no drainage, moist oral cavity Neck: no JVD, no lymphadenopathy Lungs: Clear in all [place], good inspiratory effort, no Increased WOB or SOB Heart: Quiet valves, RRR, bradycardia mid to upper 50s, no rubs, clicks, murmurs Extremities: no edema, normal gait Neuro: good balance, normal proprioception, no involuntary movements Medications at Discharge: Ambulatory Orders Medication Instructions Recorded aspirin 81 mg PO DAILYWM 10/17/14 amlodipine 5 mg tablet 5 mg PO DAILY #90 tab-cap 07/01/19 fenofibrate nanocrystallized 145 145 mg PO ONCE #90 tab-cap 07/01/19 mg tablet fluoxetine 20 mg capsule 20 mg PO QDAY #90 cap 07/01/19 metoprolol tartrate 25 mg tablet 25 mg PO BID #180 tab-cap 07/01/19 potassium chloride 10 mEq 10 meq PO DAILY #90 tab-cap 07/01/19 tablet,extended release atorvastatin [Lipitor] 40 mg PO BEDTIME 11/05/19 levothyroxine 150 mcg PO DAILY 11/05/19 Education Provided to Patient and Family: Chest Pain Follow-ups: with PCP early next week and [facility]er in 7 days. Discharge Disposition: Home Hospital Course: Pt remained pain free during her stay. Per Dr. Reynaga she did well with the stress test though she was bradycardic. Plan: 1) Chest Pain: Cardiac Monitoring, VS Q6H, Supplemental O2 for SpO2 >93%, Serial Troponin, Cardiology Consultation, Stress Echo, Cardiac Diet, EKG in AM, 24 hour observation at this time. 11/06/2019: Did well with Stress Test, Please see Dr. Augustin Documentation. She has remained pain free during her stay. Will be writting for Imdur 30 mg 1/[address] Augustin request. DVT/GI Prophylaxis: Pt is Ambulatory and Protonix. Code Status: Full Code WITHOUT Intubation but CPAP and BiPAP are OK.
--- NOTE | 2019-11-06 11:38 | DOBSTECHO ---
Date of Test: 11/06/19 Ordering Physician: BEN ASHLEY--HOSPITALIST/TUTU Smoking History: QUIT 2 YR AGO Reason for Examination: CHEST PAIN, SOB, HTN, CABG 2011 Current Medications: AMLODIPINE, FLUOXETINE, FENOFIBRATE, LIPITOR, ASA, LEVOTHYROXINE, POTASSIUM, METOPROLOL Height: 63" Weight: 200 LBS Target Heart Rate: 139/164 S-T Segment Stage Time HR BPM BP MMHG Rhythm +/- Elevation Depression Symptoms Control Sitting 50 112/58 SR X NONE Dobutamine 250mg/D5W 5cmg/KG/mn 10cmg/KG/mn 3" 56 110/56 SR X NONE 15cmg/KG/mn 2" 63 112/58 SR X NONE 20cmg/KG/mn 2" 66 112/58 SR X NONE 25cmg/KG/mn 2" 68 SR X NONE 30cmg/KG/mn 2" 74 114/54 SR X NONE 35cmg/KG/mn 2" 79 122/60 SR X 1/2 .125 ATROPINE 40cmg/KG/mn 5:52 100 120/56 SR X 1/2 .125 ATROPINE 4 MIN POST INFUSION 83 114/56 SR X NONE 7 MIN POST INFUSION 10 70 62 114/52 SR SR X X NONE NONE DURATION OF INFUSION 18:52 MAXIMUM HEART RATE REACHED 100 BPM Interpretation: 1. NO EVIDENCE OF ISCHEMIA BY ST-T WAVE CHANGES FROM HEAR RATE 50 BPM TO 100 BPM WITH DOBUTAMINE INFUSION 2. NORMAL LEFT VENTRICULAR CONTRACTILITY--RESTING AND WITH DOBUTAMINE INFUSION BY ECHO 3. NO CHEST PAIN OR DISCOMFORT RECOMMEND: LONG ACTING NITRATE WITH HER METOPROLOL AND ASA MTDD
--- NOTE | 2019-11-06 13:25 | CONS ---
DATE OF CONSULTATION: 11/05/19 REASON FOR CONSULTATION: Chest pain. HISTORY OF PRESENT ILLNESS: 59-year-old white female came to the emergency room with chest pain which seems to be exertional relieved by rest. Also has some gastroesophageal reflux disease type of symptoms. The patient's duration of symptoms several weeks. On further questioning the patient has history of coronary artery bypass surgery. Last Dobutamine Stress Echo was performed on 04/25/[address] Wilkes. According to the patient she has not seen chief operating officer for the past three years. The patient has been let go because of her IDPA by her chief operating officer. The patient has had Medicare for the past six months. The patient has not had any medication for her high cholesterol for nearly two to three years. REVIEW OF SYSTEMS: CONSTITUTIONAL: No night sweats. No fatigue, malaise, lethargy. No fever or chills. HEENT: Eyes: No visual changes. No eye pain. No eye discharge. ENT: No sinus drainage. No epistaxis. No sinus pain. No sore throat. No odynophagia. No ear pain. No congestion. RESPIRATORY: No cough, no congestion. No hemoptysis. No shortness of breath. CARDIOVASCULAR: Exertional chest discomfort. No CHF symptoms. No atypical chest pain for CAD. No palpitations. No orthopnea. GASTROINTESTINAL: No abdominal pain. No nausea or vomiting. No diarrhea or constipation. No hematemesis. No hematochezia. GENITOURINARY: No urgency. No frequency. No dysuria. No hematuria. No obstructive symptoms. No discharge. No pain. No significant abnormal bleeding. MUSCULOSKELETAL: No musculoskeletal pain. No joint swelling. NEUROLOGICAL: No headache. No neck pain. No syncope. No seizures. No dizziness. PSYCHIATRIC: Not anxious. No depression. No suicidal thoughts. No homicidal thoughts. SKIN: No rash. No lesions. No wounds. ENDOCRINE: No unexplained weight loss. No weight gain. HEMATOLOGIC/LYMPHATIC: No anemia. No purpura. No petechiae. No prolonged or excessive bleeding. No palpable lymph nodes. MEDICATIONS: (Home) Amlodipine 5 mg p.o. daily Atorvastatin 40 mg p.o. bedtime Fenofibrate 145 mg p.o. once Metoprolol 25 mg p.o. b.i.d. Aspirin 81 mg p.o. daily with meal ALLERGIES: ADHESIVE, LATEX, PENICILLIN PAST MEDICAL HISTORY: CAD Hypertension Dyslipidemia Hx of smoking Anxiety disorder PAST SURGICAL HISTORY: CABG Hysterectomy Tubal ligation SOCIAL HISTORY: , lives with . Nonsmoker - quit smoking when she had coronary artery bypass surgery. She does all activity of daily living. She takes care of five grandkids which puts a lot of stress on her. No alcohol use. PHYSICAL EXAMINATION: GENERAL: The patient is oriented to time, place and person. HEENT: Head normocephalic, atraumatic. Eyes: Extraocular muscles are intact. Pupils are equal, round and reactive to light and accommodation. Ears: No lesions. Nose appeared normal. Throat: No exudate or erythema. NECK: Supple. No JVD, no carotid bruit. No lymphadenopathy or thyromegaly. LUNGS: Clear to auscultation. Percussion note normal. Chest symmetrical. HEART: S1, S2, no S3. Grade II/ systolic murmur in the right sternal border. No cyanosis or clubbing. No ascites. Pulses: Dorsalis pedis and posterior tibial pulses +1 to +2 bilaterally. ABDOMEN: Soft. Nontender. Bowel sounds active. No CVA tenderness. No mass felt. EXTREMITIES: No edema. Full range of motion of all extremities, equal. NEUROLOGIC: No focal deficit. Cranial nerves II through XII are grossly intact. No headache, no double vision or headache. SKIN: Not dry. Intact. Turgor - normal. LYMPHATIC: No palpable lymph nodes/no lymphedema. MUSCULOSKELETAL: Normal joints with no swelling. Muscle tone is normal. EKG sinus bradycardia. Nonspecific ST-T wave change. Cardiac markers negative. ASSESSMENT: 1. CHEST PAIN CONSISTENT WITH STABLE EXERTIONAL ANGINA WITH SOME COMPONENT OF REFLUX. 2. HISTORY OF CORONARY ARTERY BYPASS SURGERY SEVERAL YEARS AGO. 3. HISTORY OF HYPERTENSION. 4. DYSLIPIDEMIA. 5. HISTORY OF SMOKING. 6. ANXIETY DISORDER WITH A LOT OF FAMILY PROBLEMS. RECOMMENDATIONS: 1. Routine telemetry orders which will include EKGs, cardiac markers. 2. Continue outpatient Amlodipine, Aspirin, Lipitor and Fenofibrate. 3. Non HDL goal is 100 or less as the patient already has coronary artery bypass surgery. 4. Will do lipid profile, T4, TSH. 5. Echocardiogram to evaluate LV function. 6. Dobutamine stress echo. The patient is unable to walk on the treadmill with arthritis type of problems. 7. Will get records from Dr. Belle. Bypass surgery was done at [facility]. ADDENDUM: The patient was followed by Dr. Belle in the past. A couple of years ago the patient was let go because of her IDPA. Primary physician is Jinny Antoine. CONDITION: Stable. MTDD
--- NOTE | 2019-11-07 11:17 | CONS ---
DATE OF SERVICE: 11/06/19 CONSULT FOLLOWUP SUBJECTIVE: 58-year-old white female hospitalized with chest pain. The patient's condition seems to be stable. REVIEW OF SYSTEMS: CONSTITUTIONAL: No night sweats. No fatigue, malaise, lethargy. No fever or chills. HEENT: Eyes: No visual changes. No eye pain. No eye discharge. ENT: No runny nose. No epistaxis. No sinus pain. No sore throat. No odynophagia. No ear pain. No congestion. RESPIRATORY: No cough, no congestion. No hemoptysis. CARDIOVASCULAR: No angina symptoms. No CHF symptoms. No atypical chest pain for CAD. No palpitations. No shortness of breath. GASTROINTESTINAL: No abdominal pain. No nausea or vomiting. No diarrhea or constipation. No hematemesis. No hematochezia. GENITOURINARY: No urgency. No frequency. No dysuria. No hematuria. No obstructive symptoms. No discharge. No pain. No significant abnormal bleeding. MUSCULOSKELETAL: No musculoskeletal pain. No joint swelling. No arthritis. NEUROLOGICAL: No headache. No neck pain. No syncope. No seizures. No dizziness. PSYCHIATRIC: Not anxious. No depression. No suicidal thoughts. No homicidal thoughts. SKIN: No rash. No lesions. No wounds. ENDOCRINE: No unexplained weight loss. No weight gain. HEMATOLOGIC/LYMPHATIC: No anemia. No purpura. No petechiae. No prolonged or excessive bleeding. No palpable lymph nodes. PHYSICAL EXAMINATION: GENERAL: The patient is oriented to time, place and person. VITAL SIGNS: Temperature 97.6, pulse 50, respiratory rate 18, BP 112/70, pulse ox 96%. HEENT: Head normocephalic, atraumatic. Eyes: Extraocular muscles are intact. Pupils are equal, round and reactive to light and accommodation. Ears: No lesions. Nose appeared normal. Throat: No exudate or erythema. NECK: Supple. No JVD, no carotid bruit. No lymphadenopathy or thyromegaly. LUNGS: Decreased breath sounds but clear to auscultation. Percussion note normal. Chest symmetrical. HEART: S1, S2, no S3. Grade I/ systolic murmur. No cyanosis or clubbing. No ascites. Pulses: Dorsalis pedis and posterior tibial pulses +1 to +2 bilaterally. ABDOMEN: Soft. Nontender. Bowel sounds active. No CVA tenderness. No mass felt. EXTREMITIES: No edema. Full range of motion of all extremities, equal. NEUROLOGIC: No focal deficit. Cranial nerves II through XII are grossly intact. No headache, no double vision or headache. SKIN: Not dry. Intact. Turgor - normal. LYMPHATIC: No palpable lymph nodes/no lymphedema. MUSCULOSKELETAL: Normal joints with no swelling. Muscle tone is normal. LABS: Hemoglobin 13.3, hematocrit 42, WBC 5,200, normal differential. Creatinine 1.1, BUN 19, potassium 3.9. ASSESSMENT: 1. CHEST PAIN BY HISTORY CONSISTENT WITH STABLE EXERTIONAL ANGINA 2. CORONARY BYPASS SURGERY 3. DYSLIPIDEMIA 4. HYPERTENSION 5. OBESITY The patient had echocardiogram done which showed mild to moderate LVH with enlarged LV cavity. Normal LV contractility, normal valvular structures. The patient's Dobutamine stress echo showed no evidence of ischemia. The patient's heart rate was 50/min at rest. Dobutamine infusion it was 100/min. The patient had no ST wave change and no chest pain. LV contractility was normal resting and during Dobutamine infusion. ASSESSMENT: THE PATIENT'S HISTORY IS CONSISTENT WITH STABLE ANGINA BUT DOBUTAMINE STRESS ECHO DID NOT SHOW ANY ISCHEMIA. THE PATIENT WAS EXPLAINED ABOUT THIS FINDING, THE HEART RATE WAS BLUNTED BECAUSE OF HER BEING ON BETA JESSICA. ATROPINE ALONG WITH DOBUTAMINE WAS USED WHEN DOUBLING THE HEART RATE THERE WAS NO EVIDENCE OF ISCHEMIA BY ECHOCARDIOGRAPHIC FINDINGS, NO SYMPTOMS. THE PATIENT WILL BE ON LONG-ACTING NITRATES, ADVISED TO CONTINUE HER BETA JESSICA, AMLODIPINE, LIPITOR AND FENOFIBRATE ALONG WITH BABY ASPIRIN, NITROGLYCERIN P.R.N. TO BE TAKEN, EXPLAINED OUT TO TAKE IT. THE CASE DISCUSSED WITH ROLAN, THE HOSPITALIST. THE PATIENT WAS FURTHER ADVISED TO GO TO [facility] EMERGENCY ROOM IN CASE SHE HAS CHEST PAIN UNRELIEVED BY NITROGLYCERIN, PERSISTING SYMPTOMS. THE PATIENT SHOULD HAVE STRESS ECHO SESTAMIBI DONE. TIME SPENT: 60 MINUTES CC: JACQUELINE [place]
--- NOTE | 2019-11-07 14:43 | CONS ---
BILLING 11/05/19 OBSERVATION/CONSULT/FIRST TIME PATIENT SEEN LEVEL 5 11/06/19 FOLLOWUP EXTENSIVE MTDD
== END 2019-11-06 13:30 | disposition home or self-care (01) ==
LOC: MEDSURG B 08:17 → ED 08:17 → MEDSURG B 11:31
PROVIDERS: ADMIT Nurse Practitioner Family; ATTEND Nurse Practitioner Family
DX: I10 Essential (primary) hypertension; R06.02 Shortness of breath; Z95.1 Presence of aortocoronary bypass graft; R07.9 Chest pain, unspecified; R42 Dizziness and giddiness; R00.1 Bradycardia, unspecified; F41.9 Anxiety disorder, unspecified; E78.5 Hyperlipidemia, unspecified; F17.210 Nicotine dependence, cigarettes, uncomplicated